=== PATIENT | male | born 1985 | race Caucasian/White ===

== ENCOUNTER 2017-02-05 22:04 | Emergency (ER) | payer OTHER ==
[2017-02-05 22:08] VITALS: BP 137/84; PULSE 72; RESP 18; TEMP 97.7; O2SAT 98
[2017-02-05] MEDS ORDERED: PROPARACAINE 0.5% 15 ML OPHT DROP ONE (22:08)
[2017-02-05] MEDS ORDERED: FLUORESCEIN SODIUM 1 MG STRIP OP ONE ×2 (22:09→22:15)
[2017-02-05] MEDS ORDERED: PROPARACAINE 0.5% 15 ML OPHT DROP OP ONE (22:15)
[2017-02-05] MEDS ORDERED: OFLOXACIN 0.3% SOLN PREPACK OPHT.BTL TAKEHOME ONE (22:35)
[2017-02-05] MEDS ORDERED: TDAP ADULT 0.5 ML INJ (BOOSTRIX) IM ONE (22:35)
--- NOTE | 2017-02-05 22:35 | EDPHY ---
H & P Time Seen by Provider: 02/05/17 22:14 HPI/ROS: CHIEF COMPLAINT: Foreign body sensation right eye HISTORY OF PRESENT ILLNESS: 32-year-old male with no history of corrective lens use, out-of-date tetanus, was using a an angle barytes grinder yesterday grinding a muffler all using safety glasses felt foreign object after his right eye. He has been complaining of a foreign body sensation right eye the past 24 hours. No Visual acuity changes. No diplopia. PHYSICAL EXAM (Prior to examination, patient consented to physical exam, hands were washed and my usual and customary physical exam procedures followed) 1) GENERAL: Well-developed, well-nourished, alert and oriented. Appears to be in no acute distress. 2) HEAD: Normocephalic 3) OCULAR EXAM: Visual Acuity: noted from Nurse's notes. Pupils:equal round and reactive to light EOMI Lids: no edema or swelling, upper and lower lids were everted and no foreign bodies were visualized, no areas of increased fluorescein uptake. Skin: no proptosis, no periorbital erythema or swelling, no vesicles, no pain with extraocular movements. Conjunctivae: not injected, no discharge, negative Natalie test. Cornea: Metallic appearing foreign body at the 5:00 position which is removed with a sterile Q-tip with a remaining rust ring Anterior chamber:normal, no hyphema or hypopyon 4) LUNGS: Breathing comfortably. Smoking Status: Never smoked Constitutional: Initial Vital Signs Temperature (C) 36.5 C 02/05/17 22:06 Heart Rate 72 02/05/17 22:06 Respiratory Rate 18 02/05/17 22:06 Blood Pressure 137/84 H 02/05/17 22:06 O2 Sat (%) 98 02/05/17 22:06 O2 Delivery Mode Room Air Allergies/Adverse Reactions: azithromycin [From Zithromax] Allergy (Verified 02/05/17 22:06) Home Medications: Medication Instructions Recorded NK [No Known Home Meds] 02/05/17 MDM/Departure - MDM Medications Given: Discontinued Medications Fluorescein Sodium (Jkydb-S-Ejaux) 1 mg OP EDNOW ONE Stop: 02/05/17 22:16 Last Admin: 02/05/17 22:16 Dose: 1 mg Proparacaine HCl (Alcaine 0.5%) 1 drops OP EDNOW ONE Stop: 02/05/17 22:16 Last Admin: 02/05/17 22:16 Dose: 1 drop ED Course/Re-evaluation: Patient re-evaluated with serial exams. Phone consultation with on-call ophthalmology Dr. John Pandey at 1045 p.m. who agrees to see the patient in the office tomorrow to remove the rust ring. We specifically discussed CT of the orbits which he thinks is not indicated at this time. Patient given take- home pack of Ocuflox drops and will follow up with Ophthalmology tomorrow. patient also seen by Dr Bennett in ER. - Depart Disposition: Home, Routine, Self-Care Clinical Impression: Corneal rust ring of right eye Foreign body of right eye Qualifiers: Encounter type: initial encounter Qualified Code(s): T15.91XA - Foreign body on external eye, part unspecified, right eye, initial encounter Condition: Good Instructions: Ofloxacin (Into the eye), Eye Foreign Body (ED), Hydrocodone/ Acetaminophen (By mouth) Additional Instructions: Return to the emergency department if you develop new or worsening symptoms. Otherwise call the order processing clerk Dr. Pandey' in the morning to be seen tomorrow. Referrals: John Pandey MD [Medical Doctor] - 1 day without fail (Dr Pandey is an eye doctor)
[2017-02-05] MEDS ORDERED: HYDROCOD/APAP 5/325 PREPACK#6 BTL TAKEHOME ONE (22:52)
== END 2017-02-05 23:23 | disposition home or self-care (01) ==
DX: T15.01XA Foreign body in cornea, right eye, initial encounter (principal); Z23 Encounter for immunization; X58.XXXA Exposure to other specified factors, initial encounter

== ENCOUNTER → 2018-02-23 | Outpatient (CLI) | payer OTHER | LOC: FIMAGING 17:52 | PROVIDERS: ATTEND Family Medicine | DX: M79.671 Pain in right foot (principal); M79.674 Pain in right toe(s) ==